=== PATIENT | female | born 1965 | race Caucasian/White ===

== ENCOUNTER 2018-02-23 18:26 | Emergency (ER) | payer BC ==
--- NOTE | 2018-02-23 19:07 | ED ---
General Adult HPI - General Chief complaint: Vaginal Bleeding Stated complaint: abn labs Time Seen by Provider: 02/23/18 18:59 Source: patient, RN notes reviewed Mode of arrival: ambulatory Limitations: no limitations - History of Present Illness Initial comments: Patient is a 52-year-old female presented to the emergency room today with a chief complaint of needing to have her hemoglobin checked. She states she was advised by her [facility] to come in to have her blood drawn. She states that she' s been having a vaginal bleeding over the last 3 weeks. Patient does admit that was heavily over the weekend. She is been changing a pad every few hours. Since was having this afternoon. States that she was advised coming Hospital have her blood checked per patient denies any history of anemia. Denies any dizziness, lightheadedness, increased tiredness. Patient denies any recent fever , chills, shortness of breath, chest pain, back pain, dysuria, constipation or diarrhea, headaches or visual changes, or any other complaints. - Related Data Home Medications Medication Instructions Recorded Confirmed No Known Home Medications [No 02/23/18 02/23/18 Known Home Medications] Allergies Allergy/AdvReac Type Severity Reaction Status Date / Time No Known Allergies Allergy Verified 02/23/18 19:07 Review of Systems ROS Statement: Those systems with pertinent positive or pertinent negative responses have been documented in the HPI. ROS Other: All systems not noted in ROS Statement are negative. Past Medical History Past Medical History: No Reported History History of Any Multi-Drug Resistant Organisms: None Reported Past Surgical History: No Surgical Hx Reported Past Psychological History: No Psychological Hx Reported Smoking Status: Never smoker Past Alcohol Use History: None Reported Past Drug Use History: None Reported General Exam - General Exam Comments Initial Comments: General: The patient is awake and alert, in no distress, and does not appear acutely ill. Eye: Pupils are equal, round and reactive to light, extra-ocular movements are intact. No nystagmus. There is normal conjunctiva bilaterally. No signs of icterus. Ears, nose, mouth and throat: There are moist mucous membranes and no oral lesions. Neck: The neck is supple, there is no tenderness or JVD. Cardiovascular: There is a regular rate and rhythm. No murmur, rub or gallop is appreciated. Respiratory: Lungs are clear to auscultation, respirations are non-labored, breath sounds are equal. No wheezes, stridor, rales, or rhonchi. Musculoskeletal: Normal ROM, no tenderness. Strength 5/5. Sensation intact. Neurological: A&O x 3. CN II-XII intact, There are no obvious motor or sensory deficits. Coordination appears grossly intact. Speech is normal. Skin: Skin is warm and dry and no rashes or lesions are noted. Psychiatric: Cooperative, appropriate mood & affect, normal judgment. Limitations: no limitations Course Vital Signs 02/23/18 02/23/18 18:28 19:26 Temperature 98.1 F 97.8 F Pulse Rate 89 75 Respiratory 20 16 Rate Blood Pressure 131/83 130/70 O2 Sat by Pulse 99 100 Oximetry Medical Decision Making - Medical Decision Making Patient's hemoglobin checked in the emergency room was 8.9. Patient's vital stable. Patient denies any leg numbness, dizziness, or any other complaint at this time. Patient states that has had vaginal bleeding last 3 weeks has been following. To my and was advised come here to the emergency room to have her hemoglobin checked. At this time patient's doing well. Will be discharged home to follow-up with her [employer] [employer] tomorrow. Advised return here to the emergency room if any symptoms increase or worsen or for any other concerns. She states understanding and is in agreement. - Lab Data Result diagrams: 02/23/18 19:28 02/23/18 19:28 Lab Results 02/23/18 02/23/18 Range/Units 19:28 19:28 WBC 5.6 (3.8-10.6) k/uL RBC 3.19 L (3.80-5.40) m/uL Hgb 8.9 L (11.4-16.0) gm/dL Hct 28.0 L (34.0-46.0) % MCV 87.8 (80.0-100.0) fL MCH 27.9 (25.0-35.0) pg MCHC 31.8 (31.0-37.0) g/dL RDW 13.3 (11.5-15.5) % Plt Count 368 (150-450) k/uL Neutrophils % 73 % Lymphocytes % 17 % Monocytes % 8 % Eosinophils % 1 % Basophils % 1 % Neutrophils # 4.0 (1.3-7.7) k/uL Lymphocytes # 1.0 (1.0-4.8) k/uL Monocytes # 0.4 (0-1.0) k/uL Eosinophils # 0.0 (0-0.7) k/uL Basophils # 0.0 (0-0.2) k/uL Hypochromasia Slight Sodium 139 (137-145) mmol/L Potassium 3.9 (3.5-5.1) mmol/L Chloride 104 (98-107) mmol/L Carbon Dioxide 23 (22-30) mmol/L Anion Gap 12 mmol/L BUN 10 (7-17) mg/dL Creatinine 0.65 (0.52-1.04) mg/dL Est GFR (CKD-EPI)AfAm >90 (>60 ml/min/1.73 sqM) Est GFR (CKD-EPI)NonAf >90 (>60 ml/min/1.73 sqM) Glucose 86 (74-99) mg/dL Calcium 8.8 (8.4-10.2) mg/dL Disposition Clinical Impression: Vaginal bleeding, Low hemoglobin Disposition: HOME SELF-CARE Condition: Good Instructions: Dysfunctional Uterine Bleeding (ED) Additional Instructions: Please follow-up with [facility] tomorrow as discussed. Please return here to emergency room if any symptoms increase or worsen or for any other concerns. Is patient prescribed a controlled substance at d/c from ED?: No Referrals: None,Stated [Primary Care Provider] - 1-2 days Pinky Barba MD [REFERRING] - 1-2 days Time of Disposition: 20:06
[2018-02-23 19:30] VITALS: RESP 16
[2018-02-23 19:38] LABS: Basophils % (A) 1 %; Eosinophils % (A) 1 %; HGB 8.9 gm/dL (11.4-16.0); Hypochromasia Slight; Lymphocytes % (A) 17 %; MCH 27.9 pg (25.0-35.0); MCHC 31.8 g/dL (31.0-37.0); MCV 87.8 fL (80.0-100.0); Monocytes # (A) 0.4 k/uL (0-1.0); Monocytes % (A) 8 %; Neutrophils % (A) 73 %; Platelet Count 368 k/uL (150-450); RBC 3.19 m/uL (3.80-5.40); RDW 13.3 % (11.5-15.5); WBC 5.6 k/uL (3.8-10.6)
[2018-02-23 19:56] LABS: Anion Gap 12 mmol/L; Blood Urea Nitrogen 10 mg/dL (7-17); Calcium 8.8 mg/dL (8.4-10.2); Carbon Dioxide 23 mmol/L (22-30); Chloride 104 mmol/L (98-107); Glucose 86 mg/dL (74-99); Potassium 3.9 mmol/L (3.5-5.1); Sodium 139 mmol/L (137-145)
[2018-02-23 20:23] VITALS: BP 144/76; PULSE 77; TEMP 98.7
== END 2018-02-23 20:26 | disposition home or self-care (01) ==
LOC: EC 18:26
DX: N93.9 Abnormal uterine and vaginal bleeding, unspecified (principal); D64.9 Anemia, unspecified
CPT/HCPCS: 36415; 80048; 85025; 99284

== ENCOUNTER 2019-07-08 11:18 | Day surgery (SDC) | payer BC ==
[2019-07-06 09:32] VITALS: BMI 26.6
[~2019-07-08 11:18] MED LIST: LACTATED RINGERS 1,000 ML IV SCH; LIDOCAINE 1% 20 ML VIAL (10MG/ML) FOR IV START INTRADERMA PRN
[2019-07-08 12:24] VITALS: RESP 16; TEMP 97.9
[2019-07-08] MEDS ORDERED: PROPOFOL 10 MG/ML 20 ML VIAL IV ONE (13:28)
--- NOTE | 2019-07-08 13:43 | P.PCN ---
Date of Procedure: 07/08/19 Procedure(s) Performed: BRIEF HISTORY: Patient is a 54-year-old pleasant female scheduled for an elective colonoscopy as a part of screening for colorectal neoplasia. PROCEDURE PERFORMED: Colonoscopy with biopsy PREOPERATIVE DIAGNOSIS: Screening for colon cancer. IV sedation per Anesthesia. PROCEDURE: After informed consent was obtained, the patient, was brought into the endoscopy unit. IV sedation was administered by Anesthesia under continuous monitoring. Digital rectal examination was normal. Initially the Olympus CF-160 flexible video colonoscope was then inserted in the rectum, gradually advanced into the cecum without any difficulty. Careful examination was performed as the scope was gradually being withdrawn. Ileocecal valve and the appendiceal orifice were visualized and appeared normal. Prep was excellent. Mucosa of the cecum, ascending colon appeared normal. In the transverse colon there was a 2-3 mm small polyp that was removed by cold biopsy. Rest of the, transverse colon, descending colon, sigmoid colon, and rectum appeared normal. Scattered sigmoidal diverticula cyst seen. Retroflexion was performed in the rectum and no lesions were seen. The patient tolerated the procedure well. IMPRESSION: 2 mm transverse colon polyp status post removal by cold biopsy Scattered sigmoid diverticulosis RECOMMENDATIONS: Findings of this examination were discussed with the patient as well as a family. She was advised to with the biopsy results and if the biopsy shows an adenoma she can have a repeat colonoscopy 5 years
[2019-07-08 14:05] VITALS: BP 131/75; PULSE 76
== END 2019-07-08 14:26 | disposition home or self-care (01) ==
LOC: ORWHC2ENDO 11:18
PROVIDERS: ATTEND Internal Medicine Gastroenterology
DX: Z12.11 Encounter for screening for malignant neoplasm of colon (principal); D12.3 Benign neoplasm of transverse colon; K57.30 Diverticulosis of large intestine without perforation or abscess without bleeding
CPT/HCPCS: 81025; 88305; 45380; J2704